=== PATIENT | female | born 1975 | race Caucasian/White ===

== ENCOUNTER 2016-05-04 13:42 | Outpatient (CLI) | payer OTHER | END 2016-05-04 13:43 | disposition home or self-care (01) | DX: Z00.00 Encounter for general adult medical examination without abnormal findings (principal); D50.9 Iron deficiency anemia, unspecified ==

== ENCOUNTER 2016-06-07 09:36 | Outpatient (CLI) | payer OTHER | END 2016-06-07 09:37 | disposition home or self-care (01) | DX: R74.8 Abnormal levels of other serum enzymes (principal) ==